=== PATIENT | female | born 1990 | race Caucasian/White ===

== ENCOUNTER 2016-07-30 13:29 | Emergency (ER) | payer OTHER ==
[~2016-07-30] VITALS: Ht 154.9 cm; Wt 54.0 kg
[~2016-07-30 13:29] MED LIST: AMOXICILLIN500 M2 PO; CORTISPORIN-TC10 M1 AD; DICLOFENAC SODI50 M3 PO; KEFLEX500 MG PO
--- NOTE | 2016-07-30 14:17 | ED UPPER/LOWER EXTREMITY COMPL ---
History of Present Illness General Chief Complaint: Laceration Procedure Stated Complaint: LFT LEG LAC AT WORK Source: patient Exam Limitations: no limitations Vital Signs & Intake/Output Vital Signs & Intake/Output Vital Signs Date Time Temp Pulse Resp B/P Pulse O2 O2 Flow FiO2 Ox Delivery Rate 07/30 1533 70 16 131/87 99 Room Air 07/30 1528 97.9 07/30 1354 98.4 95 20 134/91 98 Allergies Coded Allergies: NO KNOWN ALLERGIES (09/22/12) Triage Note: PT TO ED S/P CUT LEFT LOWER LEG WITH LOGISTICS PLANNER, UNABLE TO VISUALIZE IN TRIAGE,PT HAS PRESSURE DRESSING ON WOUND, NO ACTIVE BLEEDING NOTED. Triage Nurses Notes Reviewed? yes : No Patient currently breastfeeds: No HPI: Patient is a 26 year old female presents complaining of laceration to her left lower extremity. Patient was bending over to cut open a box when she accidentally lacerated her left leg with the primer boxer. Last tetanus immunization was in 2013. Pain is 2/10. Denies decreased range of motion. (CHRISTI RODRIGUEZ) Past History Travel History Traveled to [place] past 21 day No Medical History Any Pertinent Medical History? 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 No (CHRISTI RODRIGUEZ) Review of Systems Review of Systems Constitutional: Reports: no symptoms. Musculoskeletal: Reports: see HPI. Skin: Reports: see HPI. Neurological/Psychological: Denies: numbness. Hematologic/Endocrine: Reports: bleeding (from wound, resolved). Immunological: Denies: splenectomy. (CHRISTI RODRIGUEZ) Physical Exam Physical Exam General Appearance: well developed/nourished, alert, awake Head: atraumatic, normal appearance Eyes: Bilateral: normal appearance. Ears, Nose, Throat: hearing grossly normal Neck: normal inspection, supple, full range of motion Cardiovascular/Respiratory: no respiratory distress Back: normal range of motion Leg Left: 6 cm x 1 cm linear laceration left leg anteriorly. Minimal tenderness. No visible or palable foreign body Knee Left: normal range of motion, normal inspection Neurologic/Tendon: normal sensation, normal motor functions, normal tendon functions Skin: intact, normal color, warm/dry (CHRISTI RODRIGUEZ) Progress Differential Diagnosis: laceration, foreign body Plan of Care: Tetanus immunization up-to-date. See procedure note (CHRISTI RODRIGUEZ) Departure Departure Time of Disposition: 1521 Disposition: HOME OR SELF CARE Condition: Stable Clinical Impression Primary Impression: Leg laceration Qualifiers: Encounter type: initial encounter Laterality: left Qualified Code: S81.812A - Laceration without foreign body, left lower leg, initial encounter Referrals: PATIENT HAS NO PRIMARY CARE DR (PCP/Family) Additional Instructions: Return to the emergency department in 10-12 days for suture removal. Return immediately if pus from the wound, redness spreading from the wound, increasing pain, fevers, or worsening of symptoms. Departure Forms: Customer Survey General Discharge Information (CHRISTI RODRIGUEZ) PA/FLAT DRIER Co-Sign Statement Statement: ED Attending supervision documentation- [] I saw and evaluated the patient. I have also reviewed all the pertinent lab results and diagnostic results. I agree with the findings and the plan of care as documented in the PA's/FLAT DRIER's documentation. [x] I have reviewed the ED Record and agree with the PA's/FLAT DRIER's documentation. [] Additions or exceptions (if any) to the PAs/FLAT DRIER's note and plan are summarized below: [] (AURELIANO NEWELL DO) Procedures Laceration/Wound Repair Laceration/Wound Repair: Wound Location: lower extremity (left leg) Wound's Depth, Shape: linear Wound Length (cm): 6 Wound Explored: clean Irrigated w/ Saline (ccs): 500 Betadine Prep? Yes Anesthesia: lidocaine w/ epi Volume Anesthetic (ccs): 8 Wound Repaired With: sutures Suture Size/Type: 4:0, nylon Number of Sutures: 9 Progress: 1 horizontal mattress, 8 simple interrupted (CHRISTI RODRIGUEZ)
[2016-07-30 15:33] VITALS: BP 131/87
== END 2016-07-30 15:34 ==
LOC: ERH 13:29
DX: S81.812A Laceration without foreign body, left lower leg, initial encounter (principal); W45.8XXA Other foreign body or object entering through skin, initial encounter

== ENCOUNTER 2016-08-15 07:26 | Emergency (ER) | payer OTHER ==
[~2016-08-15] VITALS: Ht 154.9 cm; Wt 54.0 kg
[2016-08-15 07:31] VITALS: BP 128/65
--- NOTE | 2016-08-15 07:57 | ED ANIMAL BITE/WOUND CHECK ---
History of Present Illness General Chief Complaint: Suture Removal/Wound Recheck Stated Complaint: SUTUTRE REMOVAL WORK RELATED Source: patient Exam Limitations: no limitations Vital Signs & Intake/Output Vital Signs & Intake/Output Vital Signs Date Time Temp Pulse Resp B/P Pulse O2 O2 Flow FiO2 Ox Delivery Rate 08/15 0731 97.0 82 20 128/65 99 Room Air Room Air Allergies Coded Allergies: NO KNOWN ALLERGIES (09/22/12) Reconcile Medications No Known Home Medications Triage Note: PT TO ED FOR SUTURE REMOVAL TO LEFT CALF AREA, "HAD 8 BUT ONE FELL OUT". Triage Nurses Notes Reviewed? yes : No Patient currently breastfeeds: No HPI: Patient presents for suture removal of a left leg wound. Patient denies any active issues with the wound. Past History Travel History Traveled to [place] past 21 day No Medical History Any Pertinent Medical History? 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 No Review of Systems Review of Systems Constitutional: Reports: no symptoms. EENTM: Reports: no symptoms. Respiratory: Reports: no symptoms. Cardiovascular: Reports: no symptoms. GI: Reports: no symptoms. Genitourinary: Reports: no symptoms. Musculoskeletal: Reports: no symptoms. Skin: Reports: see HPI. Neurological/Psychological: Reports: no symptoms. Hematologic/Endocrine: Reports: no symptoms. Immunologic/Allergic: Reports: no symptoms. All Other Systems: Reviewed and Negative Physical Exam Physical Exam General Appearance: SEE BELOW Comments: Gen.: Well-nourished, well-developed, no acute respiratory distress. Head: Normocephalic, atraumatic. Eyes: Normal inspection bilaterally Ears: Normal inspection bilaterally Nose: Normal inspection, nasal cannula in place Throat/mouth : Moist mucosa Neck: Supple, full range of motion, no goiter Heart: Regular rate and rhythm Lungs: Quiet respirations Back: Normal range of motion Extremities: Well-healing left leg wound (sutures removed prior to my evaluation by RN) Neurologic: Cranial nerves grossly intact, speech is clear Skin: warm and dry Psychiatric: Calm, cooperative, no apparent delusions or hallucinations Progress Differential Diagnosis: RETAINED FOREIGN BODY, WOUND INFECTION Plan of Care: No specific care required Comments: After suture removal by RN, I evaluated patient. RN was concerned about a retained suture. This was removed by me. Patient agrees THat all sutures seem to be removed. Departure Departure Disposition: HOME OR SELF CARE Condition: Stable Clinical Impression Primary Impression: Visit for suture removal Referrals: PATIENT HAS NO PRIMARY CARE DR (PCP/Family) Additional Instructions: Return if any concerns or sudden worsening. Departure Forms: Customer Survey General Discharge Information Prescriptions: Current Visit Scripts No Known Home Medications
== END 2016-08-15 08:01 ==
LOC: ERH 07:26
DX: S81.812D Laceration without foreign body, left lower leg, subsequent encounter (principal)
CPT/HCPCS: 99281